=== PATIENT | male | born 1950 | race Caucasian/White ===

== ENCOUNTER 2019-11-27 09:38 | Emergency (ER) | payer OTHER ==
[~2019-11-27] VITALS: Ht 165.1 cm; Wt 72.6 kg
[~2019-11-27 09:38] MED LIST: AMLO1CAP59 PO; AMOX-426 PO; BENA1POW PO; COLC0.6T67 PO; INDO-12 PO
[2019-11-27 09:43] VITALS: BP_SYST 191
--- NOTE | 2019-11-27 09:43 | NUR ---
Patient to ER bed 3 to gown for evaluation. Side rails up. Report given to ASYA Rodriguez.
--- NOTE | 2019-11-27 09:47 | NUR ---
ER at bedside examining patient.
--- NOTE | 2019-11-27 09:52 | NUR ---
Patient came into the ER because of difficulty breathing. Patient believes to have 3 pills lodge in his throat. Patient is able to speak clearly and not presenting any signs of acute distress. Patient offered water. Patient has at bedside. SpO2 at 98%.
[2019-11-27 10:55] VITALS: BP_SYST 151
== END 2019-11-27 10:55 | disposition home or self-care (01) ==
LOC: SED 09:38
DX: F41.9 Anxiety disorder, unspecified (principal); R13.10 Dysphagia, unspecified; I10 Essential (primary) hypertension; E78.5 Hyperlipidemia, unspecified; Z79.899 Other long term (current) drug therapy
CPT/HCPCS: 99281